=== PATIENT | male | born 1950 | race Caucasian/White ===

== ENCOUNTER 2020-07-20 09:49 | Observation (INO) ==
[2020-07-20 10:21] LABS: Basophils % 0.5 %; Eosinophils # 0.1 K/mcL (0.0-0.6); Eosinophils % 1.7 %; Hematocrit 41.8 % (37.5-50.1); Hemoglobin 13.8 g/dL (12.9-16.9); Immature Granulocytes % 0.8 % (0-4); Lymphocytes # 3.4 K/mcL (0.6-4.6); Lymphocytes % 40.8 %; Mean Corpuscular Hemoglobin 30.2 pg (28.0-33.3); Mean Corpuscular Volume 91.5 fL (83.0-100.0); Mean Platelet Volume 11.7 fL (9.4-12.4); Monocytes # 0.9 K/mcL (0.0-1.3); Neutrophils # 3.7 K/mcL (1.6-8.9); Platelet Count 214 K/mcL (140-400); Red Blood Count 4.57 M/mcL (4.19-5.50); Red Cell Distribution Width 12.6 % (11.5-14.5); Segmented Neutrophils % 45.2 %; White Blood Count 8.2 K/mcL (4.3-11.1)
[2020-07-20 10:42] LABS: Calcium 8.5 mg/dL (8.6-10.3); Potassium 3.5 mEq/L (3.5-5.1)
[2020-07-20 10:43] LABS: Troponin I 0.03 ng/mL (< 0.04)
[2020-07-20] MEDS ORDERED: Aspirin 325 MG TABLET PO ONE (13:22)
[2020-07-20] MEDS ORDERED: Naloxone 0.4 MG/ML INJ IVP PRN (14:06)
[2020-07-20] MEDS ORDERED: Ondansetron 4 MG/2 ML VIAL IVP PRN (14:06)
[2020-07-20] MEDS ORDERED: Perflutren Lipid Microsphere 1.3 ML in 0.9 % Sodium Chloride 8.7 ML IVP PRN (14:12)
[2020-07-20 15:08] LABS: Prothrombin Time 11.9 Seconds (9.4-12.1)
[2020-07-20 15:25] LABS: Hepatitis B Surface Antibody 4.38 mIU/mL
[2020-07-20 15:35] LABS: Hepatitis B Surface Antigen Nonreactive (Nonreactive)
[2020-07-20] MEDS: Ipratropium/Albuterol Neb 3 ML IH SCH ×2 (15:40→22:28)
[2020-07-20] MEDS ORDERED: Perit. Dialysis with Dex 2.5 % 6,000 ML PERITONEAL ONE (19:00)
[2020-07-20] MEDS ORDERED: Perit. Dialysis with Dex 1.5 % 6,000 ML PERITONEAL ONE (19:00)
[2020-07-20] MEDS: *HR* Heparin 5,000 UNIT/ML VIAL SQ SCH (20:45)
[2020-07-20] MEDS: ALPRAZolam 0.5 MG TABLET PO PRN (20:49)
[2020-07-21 01:32] LABS: Basophils % 0.4 %; Eosinophils # 0.1 K/mcL (0.0-0.6); Eosinophils % 1.7 %; Hematocrit 34.5 % (37.5-50.1); Immature Granulocytes % 0.6 % (0-4); Lymphocytes # 3.2 K/mcL (0.6-4.6); Mean Corpuscular HGB Conc 33.3 g/dL (31.6-35.5); Mean Corpuscular Hemoglobin 30.4 pg (28.0-33.3); Mean Corpuscular Volume 91.3 fL (83.0-100.0); Mean Platelet Volume 11.9 fL (9.4-12.4); Monocytes # 0.8 K/mcL (0.0-1.3); Monocytes % 11.5 %; Neutrophils # 2.8 K/mcL (1.6-8.9); Platelet Count 179 K/mcL (140-400); Red Blood Count 3.78 M/mcL (4.19-5.50); Red Cell Distribution Width 12.5 % (11.5-14.5); Segmented Neutrophils % 39.8 %
[2020-07-21 01:33] LABS: Hemoglobin 11.5 g/dL (12.9-16.9)
[2020-07-21 01:59] LABS: Albumin 2.8 g/dL (3.5-5.7); Albumin/Globulin Ratio 1.3 (1.1-2.2); Bilirubin,Total 0.5 mg/dL (0.3-1.0); Calcium 8.1 mg/dL (8.6-10.3); Chol/HDL Ratio 5.1 (0-4.9); Globulin 2.1 g/dL (2.4-3.5); Potassium 3.6 mEq/L (3.5-5.1); Total Protein 4.9 g/dL (6.4-8.9); Troponin I 0.03 ng/mL (< 0.04)
[2020-07-21] MEDS: Ipratropium/Albuterol Neb 3 ML IH SCH ×2 (03:15→11:17)
[2020-07-21] MEDS: *HR* Heparin 5,000 UNIT/ML VIAL SQ SCH (03:31)
[2020-07-21 03:59] VITALS: BP 106/45
[2020-07-21] MEDS ORDERED: Regadenoson 0.4 MG/5 ML SYRINGE IVP ONE (06:33)
[2020-07-21] MEDS ORDERED: Aspirin 81 MG TAB.CHEW PO SCH (09:00)
[2020-07-21] MEDS ORDERED: Magnesium Oxide 400 MG TABLET PO ONE (09:30)
[2020-07-21] MEDS: ALPRAZolam 0.5 MG TABLET PO PRN (10:21)
[2020-07-21] MEDS ORDERED: carvediloL 25 MG TABLET PO SCH (17:00)
[2020-07-26] MEDS ORDERED: Ergocalciferol (VIT D2) 50,000 UNIT (1.25MG) CAP PO SCH (14:11)
== END 2020-07-21 13:30 | disposition home or self-care (01) ==
LOC: EMEROOARM 09:49 → 2ANU 09:49 → SUATTDRO 13:42 → 2ANU 14:51
PROVIDERS: ADMIT Student in an Organized Health Care Education/Training Program; ATTEND General Practice

== ENCOUNTER 2021-06-23 23:12 | Observation (INO) ==
[2021-06-24] MEDS ORDERED: Isovue-370 500 ML BOTTLE IVP ONE ×2 (00:07→00:08)
[2021-06-24] MEDS ORDERED: 0.9 % Sodium Chloride 1,000 ML IV ONE (00:07)
[2021-06-24 00:47] LABS: Basophils # 0.1 K/mcL (0.0-0.2); Basophils % 0.6 %; Eosinophils # 0.4 K/mcL (0.0-0.6); Eosinophils % 3.1 %; Hematocrit 38.8 % (37.5-50.1); Hemoglobin 12.8 g/dL (12.9-16.9); Immature Granulocytes % 0.8 % (0-4); Lymphocytes % 14.5 %; Mean Corpuscular Hemoglobin 31.9 pg (28.0-33.3); Mean Corpuscular Volume 96.8 fL (83.0-100.0); Mean Platelet Volume 10.8 fL (9.4-12.4); Monocytes % 6.8 %; Neutrophils # 10.4 K/mcL (1.6-8.9); Platelet Count 328 K/mcL (140-400); Red Blood Count 4.01 M/mcL (4.19-5.50); Red Cell Distribution Width 14.3 % (11.5-14.5); Segmented Neutrophils % 74.2 %
[2021-06-24] MEDS ORDERED: Ondansetron 4 MG/2 ML VIAL IVP ONE (00:52)
[2021-06-24 00:53] LABS: Alanine Aminotransferase < 3 Units/L (7-52); Albumin 4.1 g/dL (3.5-5.7); Albumin/Globulin Ratio 1.2 (1.1-2.2); Alkaline Phosphatase 74 Units/L (34-104); Amylase 37 Units/L (29-103); Aspartate Amino Transferase 8 Units/L (13-39); BUN/Creatinine Ratio 5 (6-26); Bilirubin,Total 0.5 mg/dL (0.3-1.0); Blood Urea Nitrogen 33 mg/dL (8-23); Calcium 9.6 mg/dL (8.6-10.3); Carbon Dioxide 26 mEq/L (23-29); Chloride 100 mEq/L (98-107); Globulin 3.3 g/dL (2.4-3.5); Glucose 86 mg/dL (70-105); Lipase 20 Units/L (11-82); Osmolality,Calculated 295 (280-300); Sodium 139 mEq/L (136-145); Total Protein 7.4 g/dL (6.4-8.9); eGFR For African Americans 9 (> 60); eGFR For Non-African Americans 8 (> 60)
[2021-06-24] MEDS ORDERED: Morphine Sulfate 2 MG/ML SYRINGE IVP ONE (03:09)
[2021-06-24] MEDS: Pantoprazole 40 MG in 0.9 % Sodium Chloride Mini Bag 100 ML IVC SCH ×3 (04:53→16:20)
[2021-06-24] MEDS ORDERED: Naloxone 0.4 MG/ML INJ IVP PRN (05:41)
[2021-06-24] MEDS ORDERED: Melatonin 3 MG TABLET PO PRN (05:41)
[2021-06-24] MEDS ORDERED: Ondansetron 4 MG/2 ML VIAL IVP PRN (05:41)
[2021-06-24 06:09] LABS: Bilirubin,Urine Negative (Negative); Blood,Urine Negative (Negative); Clarity,Urine Clear (Clear); Color,Urine Light-Yellow (Yellow); Glucose,Urine (UA) Normal (Normal); Ketones,Urine Trace mg/dL (Negative); Leukocyte Esterase,Urine Negative (Negative); Nitrite,Urine Negative (Negative); PH,Urine 8.5 pH Units (5.0-8.0); Protein,Urine >=300 mg/dL (Neg-Trace); Specific Gravity,Urine 1.024 (1.010-1.025); Urobilinogen,Urine Normal (Normal)
[2021-06-24 06:18] LABS: Squamous Epithelial Cell,Urine Few per hpf (None-Few); WBC,Urine 0-3 per hpf (0-3)
[2021-06-24] MEDS ORDERED: 0.9 % Sodium Chloride 1,000 ML IVC SCH (06:45)
[2021-06-24] MEDS ORDERED: ALPRAZolam 0.5 MG TABLET PO PRN (11:03)
[2021-06-24] MEDS: Aspirin 81 MG TAB.CHEW PO SCH (12:09)
[2021-06-24] MEDS: Ferric Citrate [Auryxia] 210 MG Tablet PO SCH ×2 (12:09→16:17)
[2021-06-24] MEDS: *HR* HYDROcodone/Acet 5/325 mg TABLET PO PRN ×2 (12:09→20:49)
[2021-06-24] MEDS ORDERED: Lidocaine -MPF 2% 2 ML VIAL ONE (12:58)
[2021-06-24] MEDS: hydrALAZINE 25 MG TABLET PO SCH ×2 (16:16→20:45)
[2021-06-25 05:09] LABS: Calcium 8.7 mg/dL (8.6-10.3); Potassium 4.3 mEq/L (3.5-5.1)
[2021-06-25] MEDS ORDERED: D5% in Water 1,000 ML IVC PRN (05:24)
[2021-06-25] MEDS ORDERED: Dextrose 4 GM Chewable Tablets PO PRN ×2 (05:24)
[2021-06-25] MEDS ORDERED: *HR* Dextrose 50 % in Water (Syg) 50 ML SYRINGE IVP PRN (05:24)
[2021-06-25 07:13] VITALS: BP 123/50; PULSE 60; TEMP 97.7; O2SAT 100
[2021-06-25] MEDS ORDERED: lisinopriL 10 MG TABLET PO SCH (09:00)
[2021-06-25] MEDS ORDERED: Isosorbide MONOnitrate (24 HR) 30 MG TAB.ER.24H PO SCH (09:00)
[2021-06-25] MEDS: Aspirin 81 MG TAB.CHEW PO SCH (09:27)
[2021-06-25] MEDS: hydrALAZINE 25 MG TABLET PO SCH (09:28)
[2021-06-25] MEDS: Ferric Citrate [Auryxia] 210 MG Tablet PO SCH (09:29)
[2021-06-25] MEDS: *HR* HYDROcodone/Acet 5/325 mg TABLET PO PRN (11:54)
== END 2021-06-25 12:35 | disposition home or self-care (01) ==
LOC: EMEROOARM 23:12 → 2ANU 23:12 → SUATTDRO 06-24 04:26 → 2ANU 06-24 04:53
PROVIDERS: ADMIT Internal Medicine; ATTEND Internal Medicine
PROC: ENDOEBX (2021-06-24 14:00)